=== PATIENT | female | born 1960 | race Caucasian/White ===

== ENCOUNTER → 2017-10-22 | Outpatient (CLI) | payer MEDICARE, MEDICAID ==
--- NOTE | 2017-10-22 11:56 | RADIOLOGY REPORT (SQ) ---
EXAM DESCRIPTION: SHOULDER LEFT 2 OR MORE VIEWS COMPLETED DATE/TIME: 10/22/2017 11:34 am REASON FOR STUDY: PAIN IN LEFT SHOULDER M25.512 PAIN IN LEFT SHOULDER COMPARISON: 02/14/2013 NUMBER OF VIEWS: Three views. TECHNIQUE: Internal rotation, external rotation, and Y view images acquired of the left shoulder. LIMITATIONS: None. FINDINGS: MINERALIZATION: Normal. BONES: No acute fracture or dislocation. No worrisome bone lesions. JOINTS: Mild bony spurring and chondrocalcinosis of the acromioclavicular joint. No glenohumeral guevara nt malalignment. VISUALIZED LUNGS AND RIBS: No pneumothorax. No rib fracture. SOFT TISSUES: There is calcification over the posterior humeral head along the infraspinatus region, question some underlying calcific tendinopathy OTHER: Lower cervical fusion hardware at C7-T1. IMPRESSION: No acute fracture or malalignment TECHNICAL DOCUMENTATION: JOB ID: [id number] [employer] [facility] [employer]- All Rights Reserved
== END ==
LOC: OD 11:17
PROVIDERS: ATTEND Internal Medicine
DX: M25.512 Pain in left shoulder (principal)

== ENCOUNTER 2018-03-03 03:25 | Observation (INO) | payer MEDICARE, MEDICAID ==
[2018-03-03] MEDS ORDERED: NORMAL SALINE 250 ML IV PRN ×2 (03:47)
--- NOTE | 2018-03-03 03:50 | ER Document Report ---
ED General - General Chief Complaint: Laceration Stated Complaint: HEAD INJURY Time Seen by Provider: 03/03/18 03:46 Mode of Arrival: Ambulatory Information source: Patient, Relative Notes: 58 yr old female presents with with concerns of fall, and bleeding. pt is on plavix, noted to have laceration to the frontal scalp. pt admits to generalized body aches, initially quite confused. TRAVEL OUTSIDE OF THE [place] IN LAST 30 DAYS: No - HPI Onset: Just prior to arrival Onset/Duration: Sudden Quality of pain: Achy Severity: Moderate Pain Level: 2 Associated symptoms: Body/muscle aches, Other Exacerbated by: Movement Relieved by: Denies Similar symptoms previously: No Recently seen / treated by doctor: No - Related Data Allergies/Adverse Reactions: acetaminophen [From Tylox] Allergy (Verified 05/18/15 13:31) chlorpheniramine [From Novahistine DH] Allergy (Verified 05/18/15 13:31) clonazepam [From Klonopin] Allergy (Verified 05/18/15 13:31) codeine [Codeine] Allergy (Verified 05/18/15 13:31) dihydrocodeine bitartrate [From Novahistine DH] Allergy (Verified 05/18/15 13:31 ) levofloxacin [From Levaquin] Allergy (Verified 05/18/15 13:31) oxycodone HCl [From Tylox] Allergy (Verified 05/18/15 13:31) Penicillins Allergy (Verified 05/18/15 13:31) phenylephrine HCl [From Novahistine DH] Allergy (Verified 05/18/15 13:31) propranolol HCl [From Inderal] Allergy (Verified 05/18/15 13:31) pseudoephedrine HCl [From Novahistine DH] Allergy (Verified 05/18/15 13:31) Past Medical History - Social History Smoking Status: Current Every Day Smoker Cigarette use (# per day): Yes Chew tobacco use (# tins/day): No Smoking Education Provided: No Family History: Reviewed & Not Pertinent - Past Medical History Cardiac Medical History: Reports: Hx Coronary Artery Disease, Hx Heart Attack - 2001, Hx Hypercholesterolemia, Hx Hypertension Pulmonary Medical History: Reports: Hx Asthma, Hx Bronchitis, Hx COPD, Hx Pneumonia Denies: Hx Tuberculosis Neurological Medical History: Reports: Hx Cerebrovascular Accident - 17 yrs old , Hx Migraine Renal/ Medical History: Reports: Hx Kidney Stones, Hx Ovarian Cysts Malignancy Medical History: Reports: Hx Breast Cancer. Denies: Hx Leukemia GI Medical History: Reports: Hx Ulcer - stomach 1985 Musculoskeltal Medical History: Reports Hx Arthritis, Reports Hx Fibromyalgia Infectious Medical History: Denies: Hx HIV Past Surgical History: Reports: Hx Appendectomy, Hx Cholecystectomy, Hx Hysterectomy, Hx Orthopedic Surgery - back surgery, cervical neck surgery X2. Denies: Hx Bowel Surgery, Hx Section, Hx Coronary Artery Bypass Graft, Hx Gastric Bypass Surgery, Hx Herniorrhaphy, Hx Mastectomy, Hx Pacemaker, Hx Tonsillectomy, Hx Tubal Ligation - Immunizations Hx Diphtheria, Pertussis, Tetanus Vaccination: Yes - tetanus 6 years Review of Systems - Review of Systems Notes: REVIEW OF SYSTEMS: CONSTITUTIONAL : Denies fever, chills, or sweats. Denies recent illness. EENT: Denies eye, ear, throat, or mouth pain or symptoms. Denies nasal or sinus congestion or discharge. Denies throat, tongue, or mouth swelling or difficulty swallowing. CARDIOVASCULAR: Denies chest pain. Denies palpitations or racing or irregular heart beat. Denies ankle edema. RESPIRATORY: Denies cough, cold, or chest congestion. Denies shortness of breath, difficulty breathing, or wheezing. GASTROINTESTINAL: Denies abdominal pain or distention. Denies nausea, vomiting , or diarrhea. Denies blood in vomitus, stools, or per rectum. Denies black, tarry stools. Denies constipation. GENITOURINARY: Denies difficulty urinating, painful urination, burning, frequency, blood in urine, or discharge. FEMALE GENITOURINARY: Denies vaginal bleeding, heavy or abnormal periods, irregular periods. Denies vaginal discharge or odor. MUSCULOSKELETAL: body aches SKIN: laceration frontal scalp HEMATOLOGIC : Denies easy bruising or bleeding. LYMPHATIC: Denies swollen, enlarged glands. NEUROLOGICAL: Denies confusion or altered mental status. Denies passing out or loss of consciousness. Denies dizziness or lightheadedness. Denies headache. Denies weakness or paralysis or loss of use of either side. Denies problems with gait or speech. Denies sensory loss, numbness, or tingling. Denies seizures. PSYCHIATRIC: Denies anxiety or stress. Denies depression, suicidal ideation, or homicidal ideation. ALL OTHER SYSTEMS REVIEWED AND NEGATIVE. PHYSICAL EXAMINATION: GENERAL: Well-appearing, well-nourished and in no acute distress. HEAD: significant bleeding frontal scalp EYES: Pupils equal round and reactive to light, extraocular movements intact, conjunctiva are normal. ENT: Nares patent, oropharynx clear without exudates. Moist mucous membranes. NECK: Normal range of motion, supple without lymphadenopathy LUNGS: Breath sounds clear to auscultation bilaterally and equal. No wheezes rales or rhonchi. HEART: Regular rate and rhythm without murmurs ABDOMEN: Soft, nontender, nondistended abdomen. No guarding, no rebound. No masses appreciated. Female : deferred Musculoskeletal: Normal range of motion, no pitting or edema. No cyanosis. NEUROLOGICAL: Cranial nerves grossly intact. Normal speech, normal gait. Normal sensory, motor exams PSYCH: Normal mood, normal affect. SKIN:laceration frontal scalp 3 cm , signifcant bleeding noted Dictation was performed using [employer] voice recognition software Physical Exam - Vital signs Vitals: Temp Resp Pulse Ox 97.9 F 13 100 03/03/18 03:40 03/03/18 03:40 03/03/18 03:40 Course - Re-evaluation Re-evalutation: 03/03/18 03:49 concern for intracraial bleed, ct ordered immediately, pt contunied ot heavily bleed, surgeon consulted, he placed 2 sutures for hemostasis, c collar placed 03/03/18 04:50 surgeon recontacted, pt continues to bleed, ct imaging thus far negative, will admit to Dr Stevens - Vital Signs Vital signs: Temp Pulse Resp BP Pulse Ox 97.9 F 15 106/66 100 03/03/18 03:40 03/03/18 04:26 03/03/18 04:26 03/03/18 04:26 - Laboratory Result Diagrams: 03/03/18 03:40 03/03/18 04:00 Laboratory results interpreted by me: 03/03/18 03/03/18 03:40 04:00 RBC 3.11 L Hgb 11.0 L Hct 32.4 L MCV 104 H MCH 35.5 H Sodium 146.4 H Chloride 111 H Glucose 117 H Creatine Kinase 226 H Total Protein 6.0 L - Diagnostic Test Radiology reviewed: Image reviewed, Reports reviewed Discharge - Discharge Clinical Impression: Head injury due to trauma Qualifiers: Encounter type: initial encounter Qualified Code(s): S09.90XA - Unspecified injury of head, initial encounter Condition: Stable Disposition: ADMITTED OBSERVATION Admitting Provider: Hospitalist Unit Admitted: Telemetry Referrals: VERONICA STEARNS MD [Primary Care Provider] - Follow up as needed
[2018-03-03 03:58] LABS: ABSOLUTE EOSINOPHILS # (AUTO) 0.1 10^3/uL (0.0-0.6); ABSOLUTE LYMPHOCYTES (AUTO) 1.7 10^3/uL (0.5-4.7); ABSOLUTE MONOCYTES (AUTO) 0.3 10^3/uL (0.1-1.4); ABSOLUTE NEUT (AUTO) 2.2 10^3/uL (1.7-8.2); BASOPHILS % (AUTO) 0.7 % (0-2); EOSINOPHILS % (AUTO) 3.3 % (0-6); HEMATOCRIT 32.4 % (36.0-47.0); MEAN CORPUSCULAR HEMOGLOBIN 35.5 pg (27.0-33.4); MEAN CORPUSCULAR HGB CONC 34.1 g/dL (32.0-36.0); MEAN CORPUSCULAR VOLUME 104 fl (80-97); MONOCYTES % (AUTO) 6.1 % (3-13); PLATELET COUNT 297 10^3/uL (150-450); RED BLOOD COUNT 3.11 10^6/uL (3.72-5.28); SEGMENTED NEUTROPHILS % (AUTO) 50.9 % (42-78); TOTAL CELLS COUNTED % (AUTO) 100 %; WHITE BLOOD COUNT 4.2 10^3/uL (4.0-10.5)
[2018-03-03 04:00] LABS: INTERNATIONAL RATION (INR) 0.97; PROTHROMBIN TIME 13.4 SEC (11.4-15.4)
--- NOTE | 2018-03-03 04:03 | RADIOLOGY REPORT (SQ) ---
EXAM DESCRIPTION: CT HEAD WITHOUT IV CONTRAST COMPLETED DATE/TME: 03/03/2018 00:00 CLINICAL HISTORY: 58 years Female, fall COMPARISON: 9.5.15. TECHNIQUE: No contrast. Coronal and sagittal reformat. This exam was performed according to our departmental dose-optimization program, which includes automated exposure control, adjustment of the mA and/or kV according to patient size and/or use of iterative reconstruction technique. FINDINGS: No hemorrhage or infarct. No mass, mass effect, or midline shift. Brain and extra-axial structures appear intact. IMPRESSION: Normal CT of the head.
--- NOTE | 2018-03-03 04:08 | RADIOLOGY REPORT (SQ) ---
EXAM DESCRIPTION: CT CERVICAL SPINE WITHOUT IV CONTRAST COMPLETED DATE/TME: 03/03/2018 03:47 CLINICAL HISTORY: 58 years Female, fall Comparison: None. Technique: No contrast. Coronal and sagittal reformat. This exam was performed according to our departmental dose-optimization program, which includes automated exposure control, adjustment of the mA and/or kV according to patient size and/or use of iterative reconstruction technique.[facility]: Dose Right [facility]: CareDose [facility]: Dose Right [facility]: Teradose 4D [facility]: pinion-pins LIMITATIONS: None Findings: Anterior C4-T1 cervical hardware fusion and intervertebral disc replacement, small marginal osteophytes posteriorly between the C3 and C6 levels cause mild spinal canal stenosis, moderate straightening of the cervical spine, mild/moderate spondylosis.Normal alignment. No fracture. Normal vertebral heights. Partially imaged nuchal soft tissues, inferior cranium, and upper thorax appear otherwise grossly intact. IMPRESSION: No acute findings. Anterior C4-T1 hardware fusion.
[2018-03-03] MEDS ORDERED: FENTANYL CITRATE INJ/PF 100 MCG/2 ML AMPUL IV ONE (04:09)
[2018-03-03] MEDS ORDERED: NORMAL SALINE 1000 ML 1,000 ML IV PRN (04:09)
[2018-03-03] MEDS ORDERED: FENTANYL CITRATE INJ/PF 100 MCG/2 ML AMPUL ONE (04:10)
[2018-03-03 04:37] LABS: ALANINE AMINOTRANSFERASE 31 U/L (9-52); ALBUMIN 3.7 g/dL (3.5-5.0); ALKALINE PHOSPHATASE 46 U/L (38-126); ANION GAP 10 (5-19); ASPARTATE AMINO TRANSFERASE 30 U/L (14-36); BILIRUBIN,DIRECT 0.3 mg/dL (0.0-0.4); BILIRUBIN,TOTAL 0.3 mg/dL (0.2-1.3); BLOOD UREA NITROGEN 15 mg/dL (7-20); CALCIUM 9.8 mg/dL (8.4-10.2); CARBON DIOXIDE 25 mmol/L (22-30); CHLORIDE 111 mmol/L (98-107); CREATINE KINASE 226 U/L (30-135); GLUCOSE 117 mg/dL (75-110); POTASSIUM 3.9 mmol/L (3.6-5.0); SODIUM 146.4 mmol/L (137-145)
--- NOTE | 2018-03-03 04:48 | RADIOLOGY REPORT (SQ) ---
EXAM DESCRIPTION: CT THORACIC SPINE WITHOUT IV CONTRAST, CT LUMBAR SPINE WITHOUT IV CONTRAST COMPLETED DATE/TME: 03/03/2018 04:01 CLINICAL HISTORY: 58 years Female, fall Comparison: CR lumbar spine, 07/13/2016. Technique: No contrast. Coronal and sagital reformat. This exam was performed according to our departmental dose-optimization program, which includes automated exposure control, adjustment of the mA and/or kV according to patient size and/or use of iterative reconstruction technique. [facility]: Dose Right [facility]: CareDose [facility]: Dose Right [facility]: Teradose 4D [facility]: [employer] LIMITATIONS: None. Findings: Fracture: None. Vertebral alignment: Grade II, 1.0 cm L5 anterolisthesis, stable. Anterior C4-T1 hardware fusion. Mild exaggerated kyphotic curvature of the thoracic spine. Normal lumbar lordosis. Partial resection of posterior elements at the lumbosacral junction. Significant disc disease at the following two levels: T11-T12: Small disc bulge causes mild spinal canal stenosis. L3-L4: Moderate disc bulge causes mild thecal sac compression. Spondylosis. Mild bilateral L3 foraminal stenosis. Other: Mild thoracic dextroconvexity. Bone demineralization. Abdominal clips. Impression: No acute findings of the thoracolumbar spine.
--- NOTE | 2018-03-03 04:48 | RADIOLOGY REPORT (SQ) ---
EXAM DESCRIPTION: CT THORACIC SPINE WITHOUT IV CONTRAST, CT LUMBAR SPINE WITHOUT IV CONTRAST COMPLETED DATE/TME: 03/03/2018 04:01 CLINICAL HISTORY: 58 years Female, fall Comparison: CR lumbar spine, 07/13/2016. Technique: No contrast. Coronal and sagital reformat. This exam was performed according to our departmental dose-optimization program, which includes automated exposure control, adjustment of the mA and/or kV according to patient size and/or use of iterative reconstruction technique. [facility]: Dose Right [facility]: CareDose [facility]: Dose Right [facility]: Teradose 4D [facility]: ViralGains LIMITATIONS: None. Findings: Fracture: None. Vertebral alignment: Grade II, 1.0 cm L5 anterolisthesis, stable. Anterior C4-T1 hardware fusion. Mild exaggerated kyphotic curvature of the thoracic spine. Normal lumbar lordosis. Partial resection of posterior elements at the lumbosacral junction. Significant disc disease at the following two levels: T11-T12: Small disc bulge causes mild spinal canal stenosis. L3-L4: Moderate disc bulge causes mild thecal sac compression. Spondylosis. Mild bilateral L3 foraminal stenosis. Other: Mild thoracic dextroconvexity. Bone demineralization. Abdominal clips. Impression: No acute findings of the thoracolumbar spine.
[2018-03-03 04:49] LABS: CREATINE KINASE MB 1.79 ng/mL (<4.55)
[2018-03-03 04:50] LABS: TROPONIN I < 0.012 ng/mL
--- NOTE | 2018-03-03 05:23 | PDOC CONSULTATION ---
Consultation Consult Date: 03/03/18 Consult reason:: Bleeding scalp wound History of Present Illness Admission Date/PCP: 03/03/18 05:02 VERONICA STEARNS MD History of Present Illness: BAIRON MARTIN is a 58 year old female seen in consultation at the request of the emergency department. The patient is status post fall from standing with a bleeding scalp wound. The patient fell at home at approximately 2 AM this morning. The patient does not remember the fall and does not know why she fell. She has a history of coronary artery disease and CVA. Patient reports pain in her head. She also reports bleeding. Patient denies nausea, vomiting, fevers, chills, malaise, fatigue, blurry vision. Past Medical History Cardiac Medical History: Reports: Coronary Artery Disease, Myocardial Infarction - 2001, Hyperlipidema, Hypertension Pulmonary Medical History: Reports: Asthma, Bronchitis, Chronic Obstructive Pulmonary Disease (COPD), Pneumonia Denies: Tuberculosis Neurological Medical History: Reports: Migraine Malignancy Medical History: Reports: Breast Cancer Denies: Leukemia Musculoskeltal Medical History: Reports: Arthritis, Fibromyalgia Hematology: Reports: Anemia Denies: Hemophilia, Sickle Cell Disease Infectious Medical History: Denies: HIV Past Surgical History Past Surgical History: Reports: Appendectomy, Cholecystectomy, Hysterectomy, Orthopedic Surgery - back surgery, cervical neck surgery X2 Denies: Section, Coronary Artery Bypass Graft, Gastric Bypass Surgery, Herniorrhaphy, Mastectomy, Pacemaker, Tonsillectomy, Tubal Ligation Social History Smoking Status: Current Every Day Smoker Frequency of Alcohol Use: None Hx Recreational Drug Use: No Drugs: None Hx Prescription Drug Abuse: No Family History Family History: Reviewed & Not Pertinent Parental Family History Reviewed: Yes Children Family History Reviewed: Yes Sibling(s) Family History Reviewed.: Yes Medication/Allergy Home Medications: Carvedilol [Coreg] 12.5 mg PO BID 05/18/15 Gabapentin 300 mg PO TID 05/18/15 Aspirin 81 mg PO DAILY PRN #1 pkg 05/19/15 Butalb/Acetaminophen/Caffeine [Fioricet (50-325-40 mg) Tablet] 1 tab PO Q6HP PRN #30 each 05/19/15 Clopidogrel Bisulfate [Plavix 75 mg Tablet] 75 mg PO DAILY #0 tablet 05/19/15 Hydrocodone Bit/Acetaminophen [Hydrocodon-Acetaminophen 5-325] 1 each PO Q6HP PRN 11/01/15 Methocarbamol [Robaxin] 500 mg PO Q4HP PRN 11/01/15 Nitroglycerin [Nitrostat] 0.4 mg SL PRN PRN 11/01/15 Ubidecarenone/Vit E Acet [Co Q-10 100 mg Softgel] 2 each PO DAILY 11/01/15 Valsartan [Diovan 80 mg Tablet] 80 mg PO QHS 11/01/15 Allergies/Adverse Reactions: acetaminophen [From Tylox] Allergy (Verified 05/18/15 13:31) chlorpheniramine [From Novahistine DH] Allergy (Verified 05/18/15 13:31) clonazepam [From Klonopin] Allergy (Verified 05/18/15 13:31) codeine [Codeine] Allergy (Verified 05/18/15 13:31) dihydrocodeine bitartrate [From [facility]] Allergy (Verified 05/18/15 13:31 ) levofloxacin [From Levaquin] Allergy (Verified 05/18/15 13:31) oxycodone HCl [From Tylox] Allergy (Verified 05/18/15 13:31) Penicillins Allergy (Verified 05/18/15 13:31) phenylephrine HCl [From [facility]] Allergy (Verified 05/18/15 13:31) propranolol HCl [From Inderal] Allergy (Verified 05/18/15 13:31) pseudoephedrine HCl [From [facility]] Allergy (Verified 05/18/15 13:31) Review of Systems Constitutional: PRESENT: headache(s). ABSENT: chills, fatigue, fever(s) Eyes: ABSENT: visual disturbances Ears: ABSENT: hearing changes Nose, Mouth, and Throat: ABSENT: mouth pain Cardiovascular: ABSENT: chest pain Respiratory: ABSENT: cough, dyspnea Gastrointestinal: ABSENT: abdominal pain, bloating, constipation Musculoskeletal: ABSENT: back pain Integumentary: PRESENT: wounds - Forehead. ABSENT: pruritus, rash Neurological: PRESENT: confusion, memory loss. ABSENT: abnormal speech, dizziness Psychiatric: ABSENT: anxiety, depression Endocrine: PRESENT: cold intolerance. ABSENT: heat intolerance Hematologic/Lymphatic: PRESENT: easy bleeding, easy bruising Physical Exam Vital Signs: Temp Pulse Resp BP Pulse Ox 98 F 17 104/70 100 03/03/18 04:46 03/03/18 04:46 03/03/18 04:46 03/03/18 04:46 General appearance: PRESENT: mild distress Head exam: PRESENT: other - 5 cm scalp wound to the frontal scalp. It is actively oozing. Eye exam: PRESENT: EOMI, PERRLA Mouth exam: PRESENT: moist Teeth exam: PRESENT: poor dentation Neck exam: ABSENT: meningismus, tenderness, thyromegaly, tracheal deviation Respiratory exam: PRESENT: clear to auscultation elena. ABSENT: chest wall tenderness, tachypnea, wheezes Cardiovascular exam: PRESENT: RRR Pulses: PRESENT: normal radial pulses Vascular exam: PRESENT: normal capillary refill. ABSENT: pallor GI/Abdominal exam: PRESENT: soft. ABSENT: distended, tenderness Rectal exam: PRESENT: deferred Extremities exam: ABSENT: pedal edema Neurological exam: PRESENT: awake, oriented to person, oriented to place, CN II- XII grossly intact. ABSENT: oriented to time, oriented to situation Psychiatric exam: ABSENT: agitated, anxious, depressed Skin exam: PRESENT: rash. ABSENT: cyanosis, erythema, jaundice Results Impressions: Head CT 03/03/18 00:00 IMPRESSION: Normal CT of the head. Cervical Spine CT 03/03/18 03:47 IMPRESSION: No acute findings. Anterior C4-T1 hardware fusion. Assessment & Plan - Diagnosis (1) Fall from standing Qualifiers: Qualified Code(s): W19.XXXA - Unspecified fall, initial encounter Is this a current diagnosis for this admission?: Yes - Plan Summary Plan Summary: This is a 58-year-old female with a fall from standing. She has a significant medical history. The etiology of her fall is currently unknown. She has a scalp laceration, but no intracranial injury. She has no obvious spine injury either. I will closed the scalp wound at the bedside today. Recommend medical admission for fall workup. No other acute trauma surgical needs. We will see again as needed. Follow-up for suture removal in 5 days.
--- NOTE | 2018-03-03 05:26 | Operative Report ---
Nonrecallable Operative Report DATE OF SURGERY: 03/03/18 PREOPERATIVE DIAGNOSIS: Fall from standing, forehead laceration. POSTOPERATIVE DIAGNOSIS: Same as above. OPERATION: Intermediate closure of a 5 cm forehead laceration. SURGEON: ISAIAH LYNN ANESTHESIA: Local TISSUE REMOVED OR ALTERED: None COMPLICATIONS: None apparent ESTIMATED BLOOD LOSS: 30 cc of old blood. PROCEDURE: Drains/implants: None. Procedure in detail: After informed consent was obtained, the patient was laid in the supine position in the emergency department. The area of the forehead was prepped and draped in a normal sterile fashion. The laceration measured approximately 5 cm in total length. The deep layers (muscular and fatty layers ) were closed with 2-0 Vicryl suture in simple interrupted fashion. The overlying skin was closed using 3-0 nylon suture in simple interrupted fashion. A dressing was then placed and the procedure was concluded. All sponge, instrument, and needle counts were correct 2. Condition: Fair.
[2018-03-03] MEDS: OXYCODONE-ACETAMINOPHEN 5-325 MG TABLET PO PRN ×3 (08:36→16:10)
--- NOTE | 2018-03-03 15:39 | RADIOLOGY REPORT (SQ) ---
EXAM DESCRIPTION: MRI HEAD WITHOUT COMPLETED DATE/TIME: 03/03/2018 3:19 pm REASON FOR STUDY: loss of vision, possible bleed COMPARISON: MRI brain 12/10/2010, 10/29/2011, 05/18/2015, 11/01/2015 TECHNIQUE: Multiplanar imaging includes non-contrasted T1, T2, FLAIR, and diffusion with ADC map seq uences. Images stored on PACS. LIMITATIONS: None. FINDINGS: ANATOMY: No anomalies. Normal vascular flow voids. Pituitary fossa normal. CSF SPACES: Normal in size and contour. No hemorrhage. CEREBRUM: Small foci of increased FLAIR/ T2 signal are seen in the right and left frontal white matte r, unchanged since 12/10/2010. Right posterior frontal convexity white matter lesion best shown on ax ial image 18, left frontal perisylvian lesion best shown on axial image 15. This may represent old d emyelinating plaque. No MR evidence of acute ischemic change, acute intracranial hemorrhage, mass effect, or midline shift . POSTERIOR FOSSA: No signal alteration. No hemorrhage. No edema, masses or mass effect. Internal wolf tory canals, cerebello-pontine angles, mastoids normal. DIFFUSION IMAGING: Negative for acute or sub-acute infarction. ORBITS: No masses. Globes normal. FLAIR and T2 weighted images demonstrate no gross optic nerve sign al abnormality. PARANASAL SINUSES: No fluid levels. Mucosa normal. OTHER: No other significant finding. IMPRESSION: Small stable white matter lesions in the bifrontal subcortical white matter similar comp ared to 2011. This could represent demyelinating disease. Sudden loss of vision could indicate opti c neuritis in this clinical setting. No MR evidence of acute infarct. EVIDENCE OF ACUTE STROKE: NO. TECHNICAL DOCUMENTATION: JOB ID: [id number] [employer]- All Rights Reserved Reading location - IP/workstation name: [email or web address]
[2018-03-03] MEDS ORDERED: OXYCODONE-ACETAMINOPHEN 5-325 MG TABLET PO PRN (20:00)
[2018-03-03] MEDS ORDERED: ALBUTEROL SULFATE 0.042% NEB (1.25 MG/3 ML) AMPUL NEB PRN (20:12)
[2018-03-03] MEDS ORDERED: METHOCARBAMOL 500 MG TABLET PO PRN (20:12)
[2018-03-03] MEDS ORDERED: NITROGLYCERIN 0.4 MG/TAB 25 TAB/BOTTLE SL PRN (20:12)
[2018-03-03] MEDS ORDERED: ALBUTEROL SULFATE HFA (90 MCG/PUFF) 200 PUFF/8.5 GM MDI IH PRN (20:30)
--- NOTE | 2018-03-03 21:06 | PDOC H&P ---
History of Present Illness Admission Date/PCP: 03/03/18 05:02 VERONICA STEARNS MD History of Present Illness: BAIRON MARTIN is a 58 year old female,She came to the emergency room this morning for evaluation after she fell at home and sustained a laceration to the frontal scalp, CT scan of the spine, cervical thoracic and lumbar was done there was no fracture, she had a lot of hemorrhage from the laceration that she sustained from the fall CT head was done it was negative for any intracranial hemorrhage. There was no antecedent chest pain, loss of consciousness or stroke before the felt, she lost her balance, fell and struck the head against a table. She was seen by the surgeon the laceration was sutured, because she lost so much blood the ED physician thought she needed to be admitted for observation. On the floor she complained of blurry vision MRI brain was done there was no acute intracranial pathology it was felt that this could be from cerebral concussion from the fall Past Medical History Cardiac Medical History: Reports: Coronary Artery Disease, Myocardial Infarction - 2001, Hyperlipidema, Hypertension Pulmonary Medical History: Reports: Asthma, Bronchitis, Chronic Obstructive Pulmonary Disease (COPD), Pneumonia Denies: Tuberculosis Neurological Medical History: Reports: Migraine Malignancy Medical History: Reports: Breast Cancer Musculoskeltal Medical History: Reports: Arthritis, Fibromyalgia Hematology: Reports: Anemia Infectious Medical History: Denies: HIV Past Surgical History Past Surgical History: Reports: Appendectomy, Cholecystectomy, Hysterectomy, Orthopedic Surgery - back surgery, cervical neck surgery X2 Social History Smoking Status: Never Smoker Frequency of Alcohol Use: Occasional Hx Recreational Drug Use: No Drugs: None Hx Prescription Drug Abuse: No - Advance Directive Resuscitation Status: Full Code Family History Family History: Reviewed & Not Pertinent Parental Family History Reviewed: Yes Children Family History Reviewed: Yes Sibling(s) Family History Reviewed.: Yes Medication/Allergy Home Medications: Albuterol Sulfate [Proair HFA] 2 puff IH Q4HP PRN 03/03/18 Albuterol Sulfate [Ventolin 0.042% Neb 1.25 mg/3 mL Ampul] 0.63 mg NEB RTQ6HP PRN 03/03/18 Aspirin [Aspirin EC] 81 mg PO DAILY 03/03/18 Butalb/Acetaminophen/Caffeine [Fioricet (50-325-40 mg) Tablet] 1 tab PO Q6HP PRN 03/03/18 Carvedilol [Coreg 12.5 mg Tablet] 12.5 mg PO Q12 03/03/18 Clopidogrel Bisulfate [Plavix 75 mg Tablet] 75 mg PO DAILY 03/03/18 Gabapentin [Neurontin 300 mg Capsule] 300 mg PO Q8 03/03/18 Methocarbamol [Robaxin 500 mg Tablet] 500 mg PO Q4HP PRN 03/03/18 Nitroglycerin [Nitrostat 0.4 mg (1/150 Gr) Tabs 25/Bottle] 1 tab SL Q5MP PRN Valsartan [Diovan 80 mg Tablet] 80 mg PO QHS 03/03/18 Allergies/Adverse Reactions: montelukast [From [facility]] Allergy (Intermediate, Verified 03/03/18 09:10) RASH chlorpheniramine [From [facility]] Allergy (Verified 03/03/18 09:10) clonazepam [From Klonopin] Allergy (Verified 03/03/18 09:10) codeine [Codeine] Allergy (Verified 03/03/18 09:10) dihydrocodeine bitartrate [From [facility]] Allergy (Verified 03/03/18 09:10 ) levofloxacin [From Levaquin] Allergy (Verified 03/03/18 09:10) oxycodone HCl [From Tylox] Allergy (Verified 03/03/18 09:10) Penicillins Allergy (Verified 03/03/18 09:10) phenylephrine HCl [From [facility]] Allergy (Verified 05/18/15 13:31) propranolol HCl [From Inderal] Allergy (Verified 05/18/15 13:31) pseudoephedrine HCl [From [facility]] Allergy (Verified 03/03/18 09:10) Review of Systems Constitutional: PRESENT: headache(s) Eyes: ABSENT: visual disturbances Ears: ABSENT: hearing changes Cardiovascular: ABSENT: chest pain, dyspnea on exertion, edema, orthropnea, palpitations Respiratory: ABSENT: cough, hemoptysis Gastrointestinal: ABSENT: abdominal pain, constipation, diarrhea, hematemesis, hematochezia, nausea, vomiting Genitourinary: ABSENT: dysuria, hematuria Musculoskeletal: ABSENT: joint swelling Integumentary: ABSENT: rash, wounds Neurological: PRESENT: confusion, dizziness Psychiatric: ABSENT: anxiety, depression, homidical ideation, suicidal ideation Endocrine: ABSENT: cold intolerance, heat intolerance, menstrual abnormalities, polydipsia, polyuria Hematologic/Lymphatic: ABSENT: easy bleeding, easy bruising, lymphadenopathy Physical Exam Vital Signs: Temp Pulse Resp BP Pulse Ox 98.8 F 78 17 118/62 99 03/03/18 19:24 03/03/18 19:24 03/03/18 19:24 03/03/18 19:24 03/03/18 19:24 Intake & Output 03/02/18 03/03/18 03/04/18 06:59 06:59 06:59 Intake Total 720 Balance 720 Weight 45.4 kg 55.4 kg General appearance: PRESENT: mild distress Head exam: PRESENT: atraumatic, normocephalic Eye exam: PRESENT: PERRLA Ear exam: PRESENT: normal external ear exam Mouth exam: PRESENT: moist, tongue midline Neck exam: PRESENT: full ROM Respiratory exam: PRESENT: clear to auscultation elena Cardiovascular exam: PRESENT: RRR, +S1, +S2 Pulses: PRESENT: normal dorsalis pedis pul, +2 pedal pulses bilateral Vascular exam: PRESENT: normal capillary refill GI/Abdominal exam: PRESENT: normal bowel sounds, soft Rectal exam: PRESENT: deferred Neurological exam: PRESENT: alert Psychiatric exam: PRESENT: appropriate affect, normal mood Skin exam: PRESENT: dry, intact, warm Results Impressions: Head CT 03/03/18 00:00 IMPRESSION: Normal CT of the head. Head MRI 03/03/18 00:00 IMPRESSION: Small stable white matter lesions in the bifrontal subcortical white matter similar compared to 2010. This could represent demyelinating disease. Sudden loss of vision could indicate optic neuritis in this clinical setting. No MR evidence of acute infarct. EVIDENCE OF ACUTE STROKE: NO. Cervical Spine CT 03/03/18 03:47 IMPRESSION: No acute findings. Anterior C4-T1 hardware fusion. Assessment & Plan - Diagnosis (1) Cerebral concussion Qualifiers: Encounter type: initial encounter Loss of consciousness presence/duration: without LOC Qualified Code(s): S06.0X0A - Concussion without loss of consciousness, initial encounter Is this a current diagnosis for this admission?: Yes (2) Laceration of forehead Qualifiers: Encounter type: initial encounter Qualified Code(s): S01.81XA - Laceration without foreign body of other part of head, initial encounter Is this a current diagnosis for this admission?: Yes (3) Fall from standing Is this a current diagnosis for this admission?: Yes
[2018-03-03] MEDS: CARVEDILOL 12.5 MG TABLET PO SCH (21:23)
[2018-03-03] MEDS: GABAPENTIN 300 MG CAPSULE PO SCH (21:24)
[2018-03-03] MEDS ORDERED: VALSARTAN 80 MG TABLET PO SCH (22:00)
[2018-03-04] MEDS: BUTALB/ACETAMINOPHEN/CAFFEINE 1 TAB EACH PO PRN ×2 (00:27→09:44)
[2018-03-04 04:56] LABS: ABSOLUTE EOSINOPHILS # (AUTO) 0.1 10^3/uL (0.0-0.6); ABSOLUTE LYMPHOCYTES (AUTO) 1.4 10^3/uL (0.5-4.7); ABSOLUTE MONOCYTES (AUTO) 0.5 10^3/uL (0.1-1.4); ABSOLUTE NEUT (AUTO) 2.6 10^3/uL (1.7-8.2); BASOPHILS % (AUTO) 0.8 % (0-2); EOSINOPHILS % (AUTO) 2.7 % (0-6); HEMATOCRIT 24.4 % (36.0-47.0); LYMPHOCYTES % (AUTO) 30.1 % (13-45); MEAN CORPUSCULAR HEMOGLOBIN 35.7 pg (27.0-33.4); MEAN CORPUSCULAR HGB CONC 34.1 g/dL (32.0-36.0); MEAN CORPUSCULAR VOLUME 105 fl (80-97); MONOCYTES % (AUTO) 10.1 % (3-13); PLATELET COUNT 242 10^3/uL (150-450); RED BLOOD COUNT 2.33 10^6/uL (3.72-5.28); RED CELL DISTRIBUTION WIDTH 14.5 % (11.5-14.0); SEGMENTED NEUTROPHILS % (AUTO) 56.3 % (42-78); TOTAL CELLS COUNTED % (AUTO) 100 %; WHITE BLOOD COUNT 4.6 10^3/uL (4.0-10.5)
[2018-03-04 04:57] LABS: HEMOGLOBIN 8.3 g/dL (12.0-15.5)
[2018-03-04] MEDS: GABAPENTIN 300 MG CAPSULE PO SCH ×2 (05:11→14:49)
[2018-03-04] MEDS: OXYCODONE-ACETAMINOPHEN 5-325 MG TABLET PO PRN ×2 (05:12→16:52)
[2018-03-04] MEDS ORDERED: NORMAL SALINE 1000 ML 1,000 ML IV PRN (06:54)
[2018-03-04 08:51] LABS: ABSOLUTE EOSINOPHILS # (AUTO) 0.1 10^3/uL (0.0-0.6); ABSOLUTE LYMPHOCYTES (AUTO) 1.3 10^3/uL (0.5-4.7); ABSOLUTE MONOCYTES (AUTO) 0.4 10^3/uL (0.1-1.4); ABSOLUTE NEUT (AUTO) 4.1 10^3/uL (1.7-8.2); BASOPHILS % (AUTO) 0.4 % (0-2); EOSINOPHILS % (AUTO) 2.3 % (0-6); HEMATOCRIT 25.2 % (36.0-47.0); HEMOGLOBIN 8.6 g/dL (12.0-15.5); LYMPHOCYTES % (AUTO) 21.5 % (13-45); MEAN CORPUSCULAR HEMOGLOBIN 35.6 pg (27.0-33.4); MEAN CORPUSCULAR HGB CONC 34.3 g/dL (32.0-36.0); MEAN CORPUSCULAR VOLUME 104 fl (80-97); MONOCYTES % (AUTO) 6.9 % (3-13); PLATELET COUNT 254 10^3/uL (150-450); RED BLOOD COUNT 2.43 10^6/uL (3.72-5.28); RED CELL DISTRIBUTION WIDTH 14.3 % (11.5-14.0); SEGMENTED NEUTROPHILS % (AUTO) 68.9 % (42-78); TOTAL CELLS COUNTED % (AUTO) 100 %; WHITE BLOOD COUNT 5.9 10^3/uL (4.0-10.5)
[2018-03-04] MEDS ORDERED: CLOPIDOGREL BISULFATE 75 MG TABLET PO SCH (10:00)
[2018-03-04] MEDS ORDERED: ASPIRIN 81 MG TABLET, ENT COATED PO SCH (10:00)
[2018-03-04 16:43] VITALS: BP 111/52
[2018-03-04] MEDS: CARVEDILOL 12.5 MG TABLET PO SCH (16:53)
--- NOTE | 2018-03-04 21:00 | PDOC DISCHARGE SUMMARY ---
General - Admit/Disc Date/PCP Admission Date/Primary Care Provider: 03/03/18 05:02 VERONICA STEARNS MD Discharge Date: 03/04/18 - Discharge Diagnosis (1) Cerebral concussion Is this a current diagnosis for this admission?: Yes (2) Laceration of forehead Is this a current diagnosis for this admission?: Yes (3) Fall from standing Is this a current diagnosis for this admission?: Yes - Additional Information Resuscitation Status: Full Code Discharge Diet: As Tolerated, Cardiac Discharge Activity: Activity As Tolerated Home Medications: Albuterol Sulfate [Proair HFA] 2 puff IH Q4HP PRN 03/03/18 Albuterol Sulfate [Ventolin 0.042% Neb 1.25 mg/3 mL Ampul] 0.63 mg NEB RTQ6HP PRN 03/03/18 Aspirin [Aspirin EC] 81 mg PO DAILY 03/03/18 Butalb/Acetaminophen/Caffeine [Fioricet (50-325-40 mg) Tablet] 1 tab PO Q6HP PRN 03/03/18 Carvedilol [Coreg 12.5 mg Tablet] 12.5 mg PO Q12 03/03/18 Clopidogrel Bisulfate [Plavix 75 mg Tablet] 75 mg PO DAILY 03/03/18 Gabapentin [Neurontin 300 mg Capsule] 300 mg PO Q8 03/03/18 Methocarbamol [Robaxin 500 mg Tablet] 500 mg PO Q4HP PRN 03/03/18 Nitroglycerin [Nitrostat 0.4 mg (1/150 Gr) Tabs 25/Bottle] 1 tab SL Q5MP PRN Valsartan [Diovan 80 mg Tablet] 80 mg PO QHS 03/03/18 History of Present Illness History of Present Illness: BAIRON MARTIN is a 58 year old female,She came to the emergency room this morning for evaluation after she fell at home and sustained a laceration to the frontal scalp, CT scan of the spine, cervical thoracic and lumbar was done there was no fracture, she had a lot of hemorrhage from the laceration that she sustained from the fall CT head was done it was negative for any intracranial hemorrhage. There was no antecedent chest pain, loss of consciousness or stroke before the felt, she lost her balance, fell and struck the head against a table. She was seen by the surgeon the laceration was sutured, because she lost so much blood the ED physician thought she needed to be admitted for observation. On the floor she complained of blurry vision MRI brain was done there was no acute intracranial pathology it was felt that this could be from cerebral concussion from the fall Hospital Course Hospital Course: Patient was admitted for observation on management of cerebral concussion for pain management. Physical Exam Vital Signs: Temp Pulse Resp BP Pulse Ox 98.2 F 76 16 111/52 L 100 03/04/18 19:25 03/04/18 19:25 03/04/18 19:25 03/04/18 19:25 03/04/18 19:25 Intake & Output 03/03/18 03/04/18 03/05/18 06:59 06:59 06:59 Intake Total 1706 1920 Balance 1706 1920 Weight 45.4 kg 59.3 kg General appearance: PRESENT: no acute distress Head exam: PRESENT: atraumatic, normocephalic Eye exam: PRESENT: conjunctiva pink, EOMI, PERRLA Ear exam: PRESENT: normal external ear exam Mouth exam: PRESENT: moist, tongue midline Neck exam: PRESENT: full ROM Cardiovascular exam: PRESENT: RRR, +S1, +S2 Vascular exam: PRESENT: normal capillary refill GI/Abdominal exam: PRESENT: normal bowel sounds, soft Rectal exam: PRESENT: deferred Neurological exam: PRESENT: alert, awake, oriented to person, oriented to place , oriented to time, oriented to situation, CN II-XII grossly intact Psychiatric exam: PRESENT: appropriate affect, normal mood Skin exam: PRESENT: dry, intact, warm Results Laboratory Results: 03/04/18 08:19 03/04/18 03/04/18 04:41 08:19 WBC 4.6 5.9 RBC 2.33 L 2.43 L Hgb 8.3 L D 8.6 L Hct 24.4 L 25.2 L MCV 105 H 104 H MCH 35.7 H 35.6 H MCHC 34.1 34.3 RDW 14.5 H 14.3 H Plt Count 242 254 Seg Neutrophils % 56.3 68.9 Lymphocytes % 30.1 21.5 Monocytes % 10.1 6.9 Eosinophils % 2.7 2.3 Basophils % 0.8 0.4 Absolute Neutrophils 2.6 4.1 Absolute Lymphocytes 1.4 1.3 Absolute Monocytes 0.5 0.4 Absolute Eosinophils 0.1 0.1 Absolute Basophils 0.0 0.0 Impressions: Head CT 03/03/18 00:00 IMPRESSION: Normal CT of the head. Head MRI 03/03/18 00:00 IMPRESSION: Small stable white matter lesions in the bifrontal subcortical white matter similar compared to 2010. This could represent demyelinating disease. Sudden loss of vision could indicate optic neuritis in this clinical setting. No MR evidence of acute infarct. EVIDENCE OF ACUTE STROKE: NO. Cervical Spine CT 03/03/18 03:47 IMPRESSION: No acute findings. Anterior C4-T1 hardware fusion. Qualifiers - * PATIENT BEING DISCHARGED WITH ANY OF THE FOLLOWING DIAGNOSIS: No
== END 2018-03-04 20:20 | disposition home or self-care (01) ==
LOC: ER 03:25 → EH 05:02 → 4N 07:10
PROVIDERS: ADMIT Internal Medicine; ATTEND Internal Medicine
PROC: 30233R1 Transfusion of Nonautologous Platelets into Peripheral Vein, Percutaneous Approach (ICD-10-PCS; principal; 2018-03-03)
PROC: 0KQ00ZZ Repair Head Muscle, Open Approach (ICD-10-PCS; 2018-03-03)
DX: S06.0X0A Concussion without loss of consciousness, initial encounter (principal); S01.81XA Laceration without foreign body of other part of head, initial encounter; W18.09XA Striking against other object with subsequent fall, initial encounter; W19.XXXA Unspecified fall, initial encounter; Y92.009 Unspecified place in unspecified non-institutional (private) residence as the place of occurrence of the external cause; F17.210 Nicotine dependence, cigarettes, uncomplicated; I25.10 Atherosclerotic heart disease of native coronary artery without angina pectoris; H53.8 Other visual disturbances; J44.9 Chronic obstructive pulmonary disease, unspecified; I10 Essential (primary) hypertension; I25.2 Old myocardial infarction; Z86.73 Personal history of transient ischemic attack (TIA), and cerebral infarction without residual deficits; Z85.3 Personal history of malignant neoplasm of breast; Z90.49 Acquired absence of other specified parts of digestive tract; Z79.02 Long term (current) use of antithrombotics/antiplatelets; Z79.82 Long term (current) use of aspirin; Z79.899 Other long term (current) drug therapy
CPT/HCPCS: 13132; 99285; 96361; 96374; 86900; 86901; 36415 ×2; 82553; 36430; 86850; 82550; 85025 ×2; 85610; 80053; 84484; 70551; 70450; 72125; 72128; 72131; P9035; A9270 ×8; J3010; J7030; G0378; J3490

== ENCOUNTER 2018-03-10 11:07 | Inpatient (IN) | payer MEDICARE, MEDICAID ==
--- NOTE | 2018-03-10 11:26 | RADIOLOGY REPORT (SQ) ---
EXAM DESCRIPTION: CHEST SINGLE VIEW COMPLETED DATE/TIME: 03/10/2018 11:14 am REASON FOR STUDY: STROKE ALERT COMPARISON: None. EXAM PARAMETERS: NUMBER OF VIEWS: One view. TECHNIQUE: Single frontal radiographic view of the chest acquired. RADIATION DOSE: NA LIMITATIONS: None. FINDINGS: LUNGS AND PLEURA: No opacities, masses or pneumothorax. No pleural effusion. MEDIASTINUM AND HILAR STRUCTURES: No masses. Contour normal. HEART AND VASCULAR STRUCTURES: Heart normal in size. Normal vasculature. BONES: No acute findings. HARDWARE: Status post anterior fusion lower cervical spine. OTHER: No other significant finding. IMPRESSION: NO ACUTE RADIOGRAPHIC FINDING IN THE CHEST. TECHNICAL DOCUMENTATION: JOB ID: [id number] [employer]- All Rights Reserved Reading location - IP/workstation name: [email or web address]
--- NOTE | 2018-03-10 11:27 | ER Document Report ---
ED General - General Mode of Arrival: Ambulatory Information source: Patient TRAVEL OUTSIDE OF THE [place] IN LAST 30 DAYS: No <ANEESH ODONNELL - Last Filed: 03/10/18 13:27> <GAVIN RUSSO - Last Filed: 03/13/18 15:11> - General Chief Complaint: Altered Mental Status Stated Complaint: POSSIBLE STROKE Time Seen by Provider: 03/10/18 11:19 Notes: Patient is a 58-year-old female who presents to the emergency department today with complaints of altered mental status. According to the at bedside, the patient had a fall last week and was admitted for the fall and has been home for a few days. Patient has a sutured laceration to her forehead which is healing appropriately. states the patient was "combative and aggressive towards him" this morning which is not normal for her. states the patient has pain medications at home but he is unsure if she took any. states the patient was normal when she went to bed last night. ( ANEESH ODONNELL) - Related Data Allergies/Adverse Reactions: montelukast [From Singulair] Allergy (Intermediate, Verified 03/10/18 11:27) RASH chlorpheniramine [From Novahistine [facility]] Allergy (Verified 03/10/18 11:27) clonazepam [From Klonopin] Allergy (Verified 03/10/18 11:27) codeine [Codeine] Allergy (Verified 03/10/18 11:27) dihydrocodeine bitartrate [From [facility]] Allergy (Verified 03/10/18 11:27 ) levofloxacin [From Levaquin] Allergy (Verified 03/10/18 11:27) oxycodone HCl [From Tylox] Allergy (Verified 03/10/18 11:27) Penicillins Allergy (Verified 03/10/18 11:27) phenylephrine HCl [From [facility]] Allergy (Verified 03/10/18 11:27) propranolol HCl [From Inderal] Allergy (Verified 03/10/18 11:27) pseudoephedrine HCl [From [facility]] Allergy (Verified 03/10/18 11:27) Past Medical History - General Information source: Relative, [facility] Records - Social History Smoking Status: Unknown if Ever Smoked Family History: Reviewed & Not Pertinent - Past Medical History Cardiac Medical History: Reports: Hx Coronary Artery Disease, Hx Heart Attack - 2002, Hx Hypercholesterolemia, Hx Hypertension Pulmonary Medical History: Reports: Hx Asthma, Hx Bronchitis, Hx COPD, Hx Pneumonia Neurological Medical History: Reports: Hx Cerebrovascular Accident - 17 yrs old , Hx Migraine Renal/ Medical History: Reports: Hx Kidney Stones, Hx Ovarian Cysts Malignancy Medical History: Reports: Hx Breast Cancer GI Medical History: Reports: Hx Ulcer - stomach 1985 Musculoskeltal Medical History: Reports Hx Arthritis, Reports Hx Fibromyalgia Past Surgical History: Reports: Hx Appendectomy, Hx Cholecystectomy, Hx Hysterectomy, Hx Orthopedic Surgery - back surgery, cervical neck surgery X2 - Immunizations Hx Diphtheria, Pertussis, Tetanus Vaccination: Yes - tetanus 6 years <ANEESH ODONNELL - Last Filed: 03/10/18 13:27> Review of Systems - Review of Systems -: Yes ROS unobtainable due to patient's medical condition <ANEESH ODONNELL - Last Filed: 03/10/18 13:27> Physical Exam <ANEESH ODONNELL - Last Filed: 03/10/18 13:27> <GAVIN RUSSO - Last Filed: 03/13/18 15:11> - Vital signs Vitals: Temp Resp Pulse Ox 98.3 F 18 96 03/10/18 11:15 03/10/18 11:15 03/10/18 11:15 - Notes Notes: Physical Exam: General: Arousable but somnolent. HEENT: Normocephalic. Sutured laceration on the forehead at the hairline. Pinpoint pupils bilaterally. Oropharynx clear. Dry mucous membranes. Neck: Supple. Non-tender. Respiratory: No respiratory distress. Clear and equal breath sounds bilaterally. Cardiovascular: Regular rate and rhythm. Abdominal: Normal Inspection. Non-tender. No distension. Normal Bowel Sounds. Back: Non-tender. No deformity or step off. Extremities: Moves all four extremities. Upper extremities: Normal inspection. Normal ROM. Lower extremities: See skin exam. No edema. Normal ROM. Neurological: Alert to person but disoriented to place or time. Psychological: Unable to assess Skin: Warm. Dry. Ecchymosis over anterior left rainey. (ANEESH ODONNELL) Course - Laboratory Result Diagrams: 03/10/18 11:20 03/10/18 11:20 <ANEESH ODONNELL - Last Filed: 03/10/18 13:27> - Laboratory Result Diagrams: 03/11/18 06:05 03/11/18 06:05 - EKG Interpretation by Me EKG shows normal: Sinus rhythm Rate: Normal Rhythm: NSR When compared to previous EKG there are: No significant change <GAVIN RUSSO - Last Filed: 03/13/18 15:11> - Re-evaluation Re-evalutation: 03/10/18 13:16 Patient will be admitted for acute encephalopathy. (GAVIN RUSSO) - Vital Signs Vital signs: Temp Pulse Resp BP Pulse Ox 98.2 F 84 18 117/68 100 03/12/18 15:57 03/12/18 15:57 03/12/18 15:57 03/12/18 15:57 03/12/18 15:57 - Laboratory Laboratory results interpreted by me: 03/10/18 03/10/18 03/10/18 11:20 11:20 11:33 RBC 2.71 L Hgb 9.7 L Hct 28.2 L MCV 104 H MCH 35.8 H RDW 14.4 H Chloride 110 H Carbon Dioxide 20 L AST 37 H Ammonia Urine Protein 30 H Urine Ketones 20 H Urine Nitrite POSITIVE H Salicylates < 1.0 L Acetaminophen 37 H 03/10/18 11:45 RBC Hgb Hct MCV MCH RDW Chloride Carbon Dioxide AST Ammonia < 8.7 L Urine Protein Urine Ketones Urine Nitrite Salicylates Acetaminophen Discharge <ANEESH ODONNELL - Last Filed: 03/10/18 13:27> - Discharge Admitting Provider: [facility] Unit Admitted: Telemetry <GAVIN RUSSO - Last Filed: 03/13/18 15:11> - Discharge Clinical Impression: Acute encephalopathy Condition: Fair Disposition: ADMITTED OBSERVATION Scribe Attestation: 03/13/18 15:10 I personally performed the services described documentation, reviewed and edited the documentation which was dictated to describe my presence, and it accurately records my words and actions. (GAVIN RUSSO) Scribe Documentation - Scribe Written by Scribe:: Chap[place]ito De La Paz, 03/10/2018 1250 acting as scribe for :: Oscar <ANEESH ODONNELL - Last Filed: 03/10/18 13:27>
--- NOTE | 2018-03-10 11:33 | RADIOLOGY REPORT (SQ) ---
EXAM DESCRIPTION: CT HEAD WITHOUT COMPLETED DATE/TIME: 03/10/2018 11:14 am REASON FOR STUDY: STROKE ALERT COMPARISON: CT brain 02/14/2010, 05/18/2015, 03/03/2018 MRI brain 05/18/2015, 11/01/2015, 03/03/2018 TECHNIQUE: Axial images acquired through the brain without intravenous contrast. Images reviewed wi th bone, brain and subdural windows. Additional sagittal and coronal reconstructions were generated. Images stored on PACS. All CT scanners at this facility use dose modulation, iterative reconstruction, and/or weight based d osing when appropriate to reduce radiation dose to as low as reasonably achievable (ALARA). [facility]: Dose Right [facility]: CareDose [facility]: Dose Right [facility]: Teradose 4D [facility]: Conversion Sound RADIATION DOSE: 55 mGy. LIMITATIONS: None. FINDINGS: VENTRICLES: Normal size and contour. CEREBRUM: No masses. No hemorrhage. No midline shift. No evidence for acute infarction. Normal gra y/white matter differentiation. Right frontal subcortical white matter lesion axial image 24 unchang ed from MRI exam 05/18/2015. CEREBELLUM: No masses. No hemorrhage. No alteration of density. No evidence for acute infarction. EXTRAAXIAL SPACES: No fluid collections. No masses. ORBITS AND GLOBE: No intra- or extraconal masses. Normal contour of globe without masses. CALVARIUM: No fracture. PARANASAL SINUSES: No fluid or mucosal thickening. SOFT TISSUES: No mass or hematoma. OTHER: No other significant finding. IMPRESSION: No acute findings. Small subcortical white matter lesion in the right posterior frontal lobe unchanged from 2015 MR exam. EVIDENCE OF ACUTE STROKE: NO. COMMENT: Pertinent findings on the imaging study reported as a CRITICAL RESULT to Dr Moore at11:15 o n 03/10/2018. Category of Critical Result: Code stroke Quality ID # [id number]: Final reports with documentation of one or more dose reduction techniques (e.g., Au tomated exposure control, adjustment of the mA and/or kV according to patient size, use of iterative reconstruction technique) TECHNICAL DOCUMENTATION: JOB ID: [id number] [employer]- All Rights Reserved Reading location - IP/workstation name: [email or web address]
[2018-03-10 11:34] LABS: INTERNATIONAL RATION (INR) 0.99; PARTIAL THROMBOPLASTIN TIME 27.8 SEC (23.5-35.8); PROTHROMBIN TIME 13.6 SEC (11.4-15.4)
[2018-03-10 11:36] LABS: ABSOLUTE LYMPHOCYTES (AUTO) 1.1 10^3/uL (0.5-4.7); ABSOLUTE MONOCYTES (AUTO) 0.3 10^3/uL (0.1-1.4); ABSOLUTE NEUT (AUTO) 2.8 10^3/uL (1.7-8.2); EOSINOPHILS % (AUTO) 0.1 % (0-6); HEMATOCRIT 28.2 % (36.0-47.0); HEMOGLOBIN 9.7 g/dL (12.0-15.5); LYMPHOCYTES % (AUTO) 26.2 % (13-45); MEAN CORPUSCULAR HEMOGLOBIN 35.8 pg (27.0-33.4); MEAN CORPUSCULAR HGB CONC 34.4 g/dL (32.0-36.0); MEAN CORPUSCULAR VOLUME 104 fl (80-97); MONOCYTES % (AUTO) 6.6 % (3-13); PLATELET COUNT 404 10^3/uL (150-450); RED BLOOD COUNT 2.71 10^6/uL (3.72-5.28); RED CELL DISTRIBUTION WIDTH 14.4 % (11.5-14.0); SEGMENTED NEUTROPHILS % (AUTO) 66.1 % (42-78); TOTAL CELLS COUNTED % (AUTO) 100 %; WHITE BLOOD COUNT 4.2 10^3/uL (4.0-10.5)
[2018-03-10 11:52] LABS: ACETAMINOPHEN 37 ug/mL (10-30); ALANINE AMINOTRANSFERASE 44 U/L (9-52); ALBUMIN 4.5 g/dL (3.5-5.0); ALKALINE PHOSPHATASE 65 U/L (38-126); ANION GAP 14 (5-19); ASPARTATE AMINO TRANSFERASE 37 U/L (14-36); BILIRUBIN,DIRECT 0.3 mg/dL (0.0-0.4); BILIRUBIN,TOTAL 0.5 mg/dL (0.2-1.3); BLOOD UREA NITROGEN 12 mg/dL (7-20); CALCIUM 9.4 mg/dL (8.4-10.2); CARBON DIOXIDE 20 mmol/L (22-30); CHLORIDE 110 mmol/L (98-107); GLUCOSE 92 mg/dL (75-110); POTASSIUM 3.9 mmol/L (3.6-5.0); SALICYLATE < 1.0 mg/dL (2.0-20.0); SODIUM 143.5 mmol/L (137-145); TOTAL PROTEIN 7.1 g/dL (6.3-8.2)
[2018-03-10] MEDS ORDERED: NALOXONE HCL INJ/PF 0.4 MG/1 ML SDV IV ONE ×2 (11:55)
[2018-03-10 12:27] LABS: APPEARANCE,URINE SLIGHTLY-CLOUDY; BILIRUBIN,URINE NEGATIVE (NEGATIVE); COLOR,URINE YELLOW; GLUCOSE, URINE NEGATIVE (NEGATIVE); KETONES,URINE 20 mg/dL (NEGATIVE); LEUKOCYTE ESTERASE,URINE NEGATIVE (NEGATIVE); NITRITE,URINE POSITIVE (NEGATIVE); PROTEIN,URINE 30 mg/dL (NEGATIVE); URINE SPECIFIC GRAVITY 1.038; UROBILINOGEN,URINE NEGATIVE mg/dL (<2.0)
[2018-03-10 12:43] LABS: URINE AMPHETAMINES SCREEN NEGATIVE; URINE BARBITURATES SCREEN UNCONFIRMED POSITIVE; URINE BENZODIAZEPINES SCREEN NEGATIVE; URINE COCAINE SCREEN NEGATIVE; URINE MARIJUANA (THC) SCREEN NEGATIVE; URINE METHADONE SCREEN NEGATIVE; URINE PHENCYCLIDINE SCREEN NEGATIVE
[2018-03-10] MEDS ORDERED: CEFTRIAXONE 1 GM/D5W RTU 1 GM/50 ML RTUPB IV ONE (14:00)
[2018-03-10] MEDS ORDERED: ONDANSETRON 4 MG TAB.RAPDIS PO PRN (15:18)
[2018-03-10] MEDS: NORMAL SALINE 1000 ML 1,000 ML IV PRN (18:04)
[2018-03-10] MEDS: METHYLPREDNISOLONE INJ 40 MG/1 ML SDV IV PRN (20:25)
[2018-03-10] MEDS ORDERED: ALBUTEROL SULFATE HFA (90 MCG/PUFF) 200 PUFF/8.5 GM MDI IH PRN (22:20)
--- NOTE | 2018-03-10 22:20 | PDOC H&P ---
History of Present Illness Admission Date/PCP: 03/10/18 14:21 VERONICA STEARNS MD Patient complains of: Altered mental status History of Present Illness: BAIRON MARTIN is a 58 year old female who was brought to the hospital by ambulance for altered mental status. The patient's states the patient fell at home 1 week ago (03/03/2018), striking her head on a table. She sustained a sizable scalp laceration that was treated at [facility] ED. Scalp laceration was sutured and patient was admitted overnight for observation secondary to large amount of blood loss. Discharged home 24 hrs later (03/04/2018 ). The patient's states the patient's mental status has been 'on a steady decline' since then. reports that this morning she woke up around 0800 and was very combative, agitated, anxious, and 'not acting like herself.' He reports she is not always able to answer questions appropriately ( cannot remember the names of their 2 horses). No witnessed seizure-like activity. No re-injury/additional head trauma since initial insult on 03/03/2018. [facility] CAD, MD on plavix (2003), chronic back pain In the ED the patient was very combative with staff, but never physically violent. Head CT negative. Urine tox screen positive for barbituates. EKG shows NSR, no acute infarction or ischemia. Troponin 0.013. She was given a dose of IV Narcan, which did not change her presentation. Upon assessment, the patient is sitting up in bed. She is awake, alert, agitated, and impulsive. She is A&O to self and place. She is disoriented to time and she does not understand why she is at the hospital. She is perseverating, repeatedly asking for her underwear and repeatedly stating that her ' is an ahole for bringing her to the hospital.' The patient endorses a mild HERNANDEZ and nausea, denies vomiting. Pupils are equal, round, reactive. No nystagmus. Speech is clear but responses to questions are slow/delayed. Equal strength and movement in all 4 extremities. Lungs are clear to auscultation. Normal S1S2, no murmur/rubs/ gallops. Mild periorbital swelling and bruising noted to arms and legs. No evidence of racoon eyes or brandt signs. Given the timeline of events, the patient's presentation is highly suspicious for post-concussive syndrome. Other differentials include infection or substance abuse. Past Medical History Cardiac Medical History: Reports: Coronary Artery Disease, Myocardial Infarction - 2002, Hyperlipidema, Hypertension Pulmonary Medical History: Reports: Asthma, Bronchitis, Chronic Obstructive Pulmonary Disease (COPD), Pneumonia Denies: Tuberculosis Neurological Medical History: Reports: Migraine Malignancy Medical History: Reports: Breast Cancer Denies: Leukemia Musculoskeltal Medical History: Reports: Arthritis, Fibromyalgia Psychiatric Medical History: Reports: None Hematology: Reports: Anemia Denies: Hemophilia, Sickle Cell Disease Infectious Medical History: Denies: HIV Past Surgical History Past Surgical History: Reports: Appendectomy, Cholecystectomy, Hysterectomy, Orthopedic Surgery - back surgery, cervical neck surgery X2 Denies: Section, Coronary Artery Bypass Graft, Gastric Bypass Surgery, Herniorrhaphy, Mastectomy, Pacemaker, Tonsillectomy, Tubal Ligation Social History Information Source: Patient, Relative - Lives with: Family Smoking Status: Never Smoker Frequency of Alcohol Use: Rare Hx Recreational Drug Use: No Drugs: None Hx Prescription Drug Abuse: No - Advance Directive Resuscitation Status: Full Code Family History Family History: CAD, Hypertension Parental Family History Reviewed: Yes Children Family History Reviewed: Yes Sibling(s) Family History Reviewed.: Yes Medication/Allergy Home Medications: Albuterol 0.63mg/3ml 3 ml NEB RTQ6HP PRN 03/10/18 Albuterol Sulfate [Proair HFA Inhalation Aerosol 8.5 gm MDI] 2 puff IH Q4HP PRN 03/10/18 Butalb/Acetaminophen/Caffeine [Fioricet (50-325-40 mg) Tablet] 1 tab PO QID Carvedilol [Coreg 12.5 mg Tablet] 12.5 mg PO Q12 03/10/18 Clopidogrel Bisulfate [Plavix 75 mg Tablet] 75 mg PO DAILY 03/10/18 Gabapentin [Neurontin 300 mg Capsule] 300 mg PO Q8 03/10/18 Meloxicam [Mobic] 7.5 mg PO DAILY 03/10/18 Methocarbamol [Robaxin 500 mg Tablet] 500 mg PO Q4H 03/10/18 Montelukast Sodium [Singulair 10 mg Tablet] 10 mg PO QPM 03/10/18 Nitroglycerin [Nitrostat 0.4 mg (1/150 Gr) Tabs 25/Bottle] 0.4 mg SL Q5MP PRN Valsartan [Diovan 80 mg Tablet] 80 mg PO DAILY 03/10/18 Allergies/Adverse Reactions: montelukast [From Singulair] Allergy (Intermediate, Verified 03/10/18 11:27) RASH chlorpheniramine [From [facility]] Allergy (Verified 03/10/18 11:27) clonazepam [From Klonopin] Allergy (Verified 03/10/18 11:27) codeine [Codeine] Allergy (Verified 03/10/18 11:27) dihydrocodeine bitartrate [From [facility]] Allergy (Verified 03/10/18 11:27 ) levofloxacin [From Levaquin] Allergy (Verified 03/10/18 11:27) oxycodone HCl [From Tylox] Allergy (Verified 03/10/18 11:27) Penicillins Allergy (Verified 03/10/18 11:27) phenylephrine HCl [From [facility]] Allergy (Verified 03/10/18 11:27) propranolol HCl [From Inderal] Allergy (Verified 03/10/18 11:27) pseudoephedrine HCl [From [facility]] Allergy (Verified 03/10/18 11:27) Review of Systems All systems: reviewed and no additional remarkable complaints except as stated Physical Exam Vital Signs: Temp Pulse Resp BP Pulse Ox 98.3 F 101 H 17 127/58 H 100 03/10/18 19:36 03/10/18 19:36 03/10/18 19:36 03/10/18 19:36 03/10/18 19:36 Intake & Output 03/09/18 03/10/18 03/11/18 06:59 06:59 06:59 Weight 49.5 kg General appearance: PRESENT: disheveled Eye exam: PRESENT: conjunctiva pink, periorbital swelling, PERRLA Mouth exam: PRESENT: moist Neck exam: PRESENT: full ROM Respiratory exam: PRESENT: clear to auscultation elena, symmetrical, unlabored Cardiovascular exam: PRESENT: +S1, +S2 Pulses: PRESENT: normal radial pulses, normal dorsalis pedis pul Vascular exam: PRESENT: normal capillary refill GI/Abdominal exam: PRESENT: normal bowel sounds, soft Rectal exam: PRESENT: deferred Extremities exam: PRESENT: full ROM. ABSENT: joint swelling Musculoskeletal exam: PRESENT: ambulatory, full ROM Neurological exam: PRESENT: alert, awake, oriented to person, oriented to place , oriented to time, oriented to situation Psychiatric exam: PRESENT: agitated. ABSENT: appropriate affect Skin exam: PRESENT: dry, warm, other - bruising to arms and legs. sutured scalp laceration Results Impressions: Chest X-Ray 03/10/18 00:00 IMPRESSION: NO ACUTE RADIOGRAPHIC FINDING IN THE CHEST. Head CT 03/10/18 00:00 IMPRESSION: No acute findings. Small subcortical white matter lesion in the right posterior frontal lobe unchanged from 2015 MR exam. EVIDENCE OF ACUTE STROKE: NO. Status: Imported from PACS Assessment & Plan - Diagnosis (1) Acute encephalopathy Is this a current diagnosis for this admission?: Yes Plan: Likely post-concussive syndrome vs. infection vs. substance use reports patient woke up this morning very combative and 'not acting like herself' Head CT negative for hemorrhage, contusion, cerebral edema, tumor or any other pathology Of note, patient recently fell at home striking her head on a table. Large scalp laceration. Patient was treated at [facility] and ultimately discharged home. Recent MRI on 03/04, 24hrs after fall, was negative. No plan to repeat at this time. Currently complains of a headache Admit for close observation Seizure precautions PRN tylenol for pain control (2) Head injury due to trauma Qualifiers: Encounter type: initial encounter Qualified Code(s): S09.90XA - Unspecified injury of head, initial encounter Is this a current diagnosis for this admission?: Yes Plan: admits that patient recently fell at home, striking her head on a table. Patient was evaluated at [facility] ED for a closed head injury. Eventually discharged home following closure of scalp laceration. Repeat head CT done today - results negative. Sutures secure, wound is open to air without drainage. (3) HTN (hypertension) Qualifiers: Hypertension type: essential hypertension Qualified Code(s): I10 - Essential (primary) hypertension Is this a current diagnosis for this admission?: Yes Plan: Endorses history of HTN restart home medication (4) UTI (urinary tract infection) Qualifiers: Urinary tract infection type: acute cystitis Is this a current diagnosis for this admission?: Yes Plan: Urine positive (+) for nitrites, coudy and hazy. No leuk esterase and WBC 1. Treated for UTI in ED with Rocephin IV Not a strong clinical suspicion for UTI but will send urine culture Continue to treat with Macrobid BID x 5 days - Time Time Spent: 50 to 70 Minutes Medications reviewed and adjusted accordingly: Yes Anticipated discharge: Home - Inpatient Certification Based on my medical assessment, after consideration of the patient's comorbidities, presenting symptoms, or acuity I expect that the services needed warrant INPATIENT care.: Yes I certify that my determination is in accordance with my understanding of Medicare's requirements for reasonable and necessary INPATIENT services [42 CFR 412.3e].: Yes Medical Necessity: Risk of Complication if Not Cared For in Hospital - Plan Summary Plan Summary: ADMIT TO [facility] FOR OBSERVATION. TREAT POSSIBLE UTI. CLOSE OBSERVATION BY NURSING STAFF.
[2018-03-10] MEDS: ACETAMINOPHEN 325 MG TABLET PO PRN (23:38)
--- NOTE | 2018-03-11 00:25 | EKG REPORT ---
SEVERITY:- NORMAL ECG - SINUS RHYTHM : Confirmed by: Shana Hawk MD 11-Mar-2018 00:24:36
[2018-03-11] MEDS: METHYLPREDNISOLONE INJ 40 MG/1 ML SDV IV PRN ×2 (04:09→14:18)
[2018-03-11 06:32] LABS: ABSOLUTE LYMPHOCYTES (AUTO) 0.7 10^3/uL (0.5-4.7); ABSOLUTE MONOCYTES (AUTO) 0.1 10^3/uL (0.1-1.4); ABSOLUTE NEUT (AUTO) 3.3 10^3/uL (1.7-8.2); BASOPHILS % (AUTO) 0.5 % (0-2); EOSINOPHILS % (AUTO) 0.4 % (0-6); HEMATOCRIT 25.8 % (36.0-47.0); HEMOGLOBIN 8.7 g/dL (12.0-15.5); LYMPHOCYTES % (AUTO) 17.5 % (13-45); MEAN CORPUSCULAR HEMOGLOBIN 35.3 pg (27.0-33.4); MEAN CORPUSCULAR HGB CONC 33.9 g/dL (32.0-36.0); MEAN CORPUSCULAR VOLUME 104 fl (80-97); MONOCYTES % (AUTO) 3.4 % (3-13); PLATELET COUNT 342 10^3/uL (150-450); RED BLOOD COUNT 2.48 10^6/uL (3.72-5.28); RED CELL DISTRIBUTION WIDTH 14.1 % (11.5-14.0); SEGMENTED NEUTROPHILS % (AUTO) 78.2 % (42-78); TOTAL CELLS COUNTED % (AUTO) 100 %; WHITE BLOOD COUNT 4.2 10^3/uL (4.0-10.5)
[2018-03-11 06:49] LABS: ALANINE AMINOTRANSFERASE 37 U/L (9-52); ALBUMIN 4.1 g/dL (3.5-5.0); ALKALINE PHOSPHATASE 56 U/L (38-126); ANION GAP 11 (5-19); ASPARTATE AMINO TRANSFERASE 34 U/L (14-36); BILIRUBIN,DIRECT 0.3 mg/dL (0.0-0.4); BILIRUBIN,TOTAL 0.4 mg/dL (0.2-1.3); BLOOD UREA NITROGEN 9 mg/dL (7-20); CARBON DIOXIDE 22 mmol/L (22-30); CHLORIDE 113 mmol/L (98-107); GLUCOSE 95 mg/dL (75-110); POTASSIUM 4.4 mmol/L (3.6-5.0); SODIUM 146.2 mmol/L (137-145); TOTAL PROTEIN 6.6 g/dL (6.3-8.2)
[2018-03-11] MEDS: BUTALB/ACETAMINOPHEN/CAFFEINE 1 TAB EACH PO SCH ×4 (09:41→21:42)
[2018-03-11] MEDS: NITROFURANTOIN MONOHYD/M-CRYST 100 MG CAPSULE PO SCH ×2 (09:41→17:21)
[2018-03-11] MEDS: VALSARTAN 80 MG TABLET PO SCH (09:42)
[2018-03-11] MEDS: CARVEDILOL 12.5 MG TABLET PO SCH ×2 (09:42→21:42)
[2018-03-11] MEDS ORDERED: CLOPIDOGREL BISULFATE 75 MG TABLET PO SCH (10:00)
[2018-03-11] MEDS: NORMAL SALINE 1000 ML 1,000 ML IV PRN (14:18)
--- NOTE | 2018-03-11 21:13 | PDOC PROGRESS REPORT ---
Subjective Progress Note for:: 03/11/18 Subjective:: Patient was admitted yesterday for evaluation of altered mental status, the exact cause is not clear she was seen today by the bedside she is alert she is oriented to time place and person she is able to engage in conversation intelligently, about a week ago she fell and sustained scalp injury with cerebral concussion, she thinks the altered mental status is probably related to the concussion Reason For Visit: ALTERED MENTAL STATUS Physical Exam Vital Signs: Temp Pulse Resp BP Pulse Ox 98.3 F 83 16 110/60 100 03/11/18 15:05 03/11/18 19:00 03/11/18 15:05 03/11/18 15:05 03/11/18 15:05 Intake & Output 03/10/18 03/11/18 03/12/18 06:59 06:59 06:59 Intake Total 1625 4137 Balance 1625 4137 Weight 48 kg General appearance: PRESENT: no acute distress Eye exam: PRESENT: PERRLA Respiratory exam: PRESENT: clear to auscultation elena Cardiovascular exam: PRESENT: +S1, +S2 GI/Abdominal exam: PRESENT: soft Neurological exam: PRESENT: alert Results Laboratory Results: 03/11/18 06:05 03/11/18 06:05 03/11/18 03/11/18 03/11/18 06:05 06:05 06:05 WBC 4.2 RBC 2.48 L Hgb 8.7 L Hct 25.8 L MCV 104 H MCH 35.3 H MCHC 33.9 RDW 14.1 H Plt Count 342 Seg Neutrophils % 78.2 H Lymphocytes % 17.5 Monocytes % 3.4 Eosinophils % 0.4 Basophils % 0.5 Absolute Neutrophils 3.3 Absolute Lymphocytes 0.7 Absolute Monocytes 0.1 Absolute Eosinophils 0.0 Absolute Basophils 0.0 Sodium 146.2 H Potassium 4.4 Chloride 113 H Carbon Dioxide 22 Anion Gap 11 BUN 9 Creatinine 0.73 Est GFR ( Amer) > 60 Est GFR (Non-Af Amer) > 60 Glucose 95 Calcium 9.0 Total Bilirubin 0.4 AST 34 ALT 37 Alkaline Phosphatase 56 Total Protein 6.6 Albumin 4.1 TSH 0.30 L 03/11/18 06:05 NT-Pro-B Natriuret Pep 129 Impressions: Chest X-Ray 03/10/18 00:00 IMPRESSION: NO ACUTE RADIOGRAPHIC FINDING IN THE CHEST. Head CT 03/10/18 00:00 IMPRESSION: No acute findings. Small subcortical white matter lesion in the right posterior frontal lobe unchanged from 2015 MR exam. EVIDENCE OF ACUTE STROKE: NO. Assessment & Plan - Diagnosis (1) Encephalopathy Is this a current diagnosis for this admission?: Yes
[2018-03-12] MEDS: NORMAL SALINE 1000 ML 1,000 ML IV PRN (02:37)
[2018-03-12] MEDS: ACETAMINOPHEN 325 MG TABLET PO PRN (03:49)
[2018-03-12] MEDS: VALSARTAN 80 MG TABLET PO SCH (09:08)
[2018-03-12] MEDS: NITROFURANTOIN MONOHYD/M-CRYST 100 MG CAPSULE PO SCH ×2 (09:08→15:35)
[2018-03-12] MEDS: METHYLPREDNISOLONE INJ 40 MG/1 ML SDV IV PRN (09:08)
[2018-03-12] MEDS: CARVEDILOL 12.5 MG TABLET PO SCH (09:08)
[2018-03-12] MEDS: BUTALB/ACETAMINOPHEN/CAFFEINE 1 TAB EACH PO SCH ×2 (09:08→13:34)
--- NOTE | 2018-03-12 15:31 | PDOC DISCHARGE SUMMARY ---
General - Admit/Disc Date/PCP Admission Date/Primary Care Provider: 03/10/18 14:21 VERONICA STEARNS MD Discharge Date: 03/12/18 - Discharge Diagnosis (1) Encephalopathy Is this a current diagnosis for this admission?: Yes (2) UTI (urinary tract infection) Is this a current diagnosis for this admission?: Yes - Additional Information Resuscitation Status: Full Code Prescriptions: Nitrofurantoin Monohyd/M-Cryst [Macrobid 100 mg Capsule] 100 mg PO BID #10 capsule Home Medications: Albuterol 0.63mg/3ml 3 ml NEB RTQ6HP PRN 03/10/18 Albuterol Sulfate [Proair HFA Inhalation Aerosol 8.5 gm MDI] 2 puff IH Q4HP PRN 03/10/18 Butalb/Acetaminophen/Caffeine [Fioricet (50-325-40 mg) Tablet] 1 tab PO QID Carvedilol [Coreg 12.5 mg Tablet] 12.5 mg PO Q12 03/10/18 Clopidogrel Bisulfate [Plavix 75 mg Tablet] 75 mg PO DAILY 03/10/18 Gabapentin [Neurontin 300 mg Capsule] 300 mg PO Q8 03/10/18 Meloxicam [Mobic] 7.5 mg PO DAILY 03/10/18 Montelukast Sodium [Singulair 10 mg Tablet] 10 mg PO QPM 03/10/18 Nitroglycerin [Nitrostat 0.4 mg (1/150 Gr) Tabs 25/Bottle] 0.4 mg SL Q5MP PRN Valsartan [Diovan 80 mg Tablet] 80 mg PO DAILY 03/10/18 Nitrofurantoin Monohyd/M-Cryst [Macrobid 100 mg Capsule] 100 mg PO BID #10 capsule 03/12/18 History of Present Illness History of Present Illness: BAIRON MARTIN is a 58 year old female, she came to the emergency room for evaluation of altered mental status, there was antecedent history of for about 7 days ago when she sustained a scalp injury with laceration at the time she was admitted for observation for 24 hours Hospital Course Hospital Course: Patient was admitted for the management of altered mental status the exact cause is not clear but it was felt to be related to the previous injury she had about 7 days ago when she fell and sustained a scalp injury with associated cerebral concussion. She also had a UTI no specific pathogen was culture from the urine she was empirically treated with Macrobid, on admission she was admitted initially by the hospitalist service, she was subsequently transferred to service patient is stable for the 24 hours she has been fully conscious alert oriented to time place and person she be discharged home today she will continue Macrobid for a few more days she will follow outpatient in the office. Physical Exam Vital Signs: Temp Pulse Resp BP Pulse Ox 98.2 F 84 18 135/69 H 100 03/12/18 11:13 03/12/18 14:00 03/12/18 11:13 03/12/18 11:13 03/12/18 11:13 Intake & Output 03/11/18 03/12/18 03/13/18 06:59 06:59 06:59 Intake Total 1625 5577 1680 Balance 1625 5577 1680 Weight 48 kg 49.532 kg General appearance: PRESENT: no acute distress, well-developed, well-nourished Head exam: PRESENT: atraumatic, normocephalic Eye exam: PRESENT: conjunctiva pink, EOMI, PERRLA Ear exam: PRESENT: normal external ear exam Mouth exam: PRESENT: moist, tongue midline Neck exam: PRESENT: full ROM Respiratory exam: PRESENT: clear to auscultation elena Cardiovascular exam: PRESENT: RRR, +S1, +S2 Vascular exam: PRESENT: normal capillary refill GI/Abdominal exam: PRESENT: normal bowel sounds, soft Rectal exam: PRESENT: deferred Neurological exam: PRESENT: alert, awake, oriented to person, oriented to place , oriented to time, oriented to situation, CN II-XII grossly intact Psychiatric exam: PRESENT: appropriate affect, normal mood Skin exam: PRESENT: dry, intact, warm Results Laboratory Results: 03/11/18 06:05 03/11/18 06:05 03/11/18 06:05 NT-Pro-B Natriuret Pep 129 Impressions: Chest X-Ray 03/10/18 00:00 IMPRESSION: NO ACUTE RADIOGRAPHIC FINDING IN THE CHEST. Head CT 03/10/18 00:00 IMPRESSION: No acute findings. Small subcortical white matter lesion in the right posterior frontal lobe unchanged from 2015 MR exam. EVIDENCE OF ACUTE STROKE: NO. Qualifiers - * PATIENT BEING DISCHARGED WITH ANY OF THE FOLLOWING DIAGNOSIS: No
[2018-03-12 16:01] VITALS: BP 123/69
== END 2018-03-12 15:55 | disposition home or self-care (01) | DRG 689 ==
LOC: ER 11:07 → EH 14:21 → OBSVTOIN 14:21 → 4N 16:08
PROVIDERS: ADMIT Internal Medicine; ATTEND Internal Medicine
DX: N30.00 Acute cystitis without hematuria (principal); G93.40 Encephalopathy, unspecified; I25.10 Atherosclerotic heart disease of native coronary artery without angina pectoris; E78.00 Pure hypercholesterolemia, unspecified; I10 Essential (primary) hypertension; G43.909 Migraine, unspecified, not intractable, without status migrainosus; M19.90 Unspecified osteoarthritis, unspecified site; M79.7 Fibromyalgia; D64.9 Anemia, unspecified; S09.90XD Unspecified injury of head, subsequent encounter; Z79.899 Other long term (current) drug therapy; I25.2 Old myocardial infarction; Z85.3 Personal history of malignant neoplasm of breast; Z90.49 Acquired absence of other specified parts of digestive tract; Z90.710 Acquired absence of both cervix and uterus; Z82.49 Family history of ischemic heart disease and other diseases of the circulatory system; Z88.6 Allergy status to analgesic agent; Z88.3 Allergy status to other anti-infective agents; Z88.0 Allergy status to penicillin; Z88.8 Allergy status to other drugs, medicaments and biological substances; Z91.81 History of falling; Z86.73 Personal history of transient ischemic attack (TIA), and cerebral infarction without residual deficits
CPT/HCPCS: 36415; 70450; 71045; 80053; 80307; 81001; 82140; 83880; 84443; 84484; 85025; 85610; 85730; 93005; 93010; 96374; 96375; 99285; J0696; J2310; J2920; J3490; J7030; J8499